=== PATIENT | male | born 1990 | race Caucasian/White ===

== ENCOUNTER 2022-05-24 16:53 | Emergency (ER) | payer OTHER ==
[~2022-05-24] VITALS: Ht 175.3 cm; Wt 80.3 kg
[2022-05-24 17:28] VITALS: BP 115/51
--- NOTE | 2022-05-24 17:30 | NUR ---
PT SENT TO LOBBY TO WAIT
--- NOTE | 2022-05-24 18:04 | NUR ---
31 Y.O. M BIB SELF C/O R ARM AND LEG NUMBNESS. STARTED 2-3HRS AGO. PT AFRAID HAS A BLOCKAGE IN HIS ARM/LEG. ARM AND LEG HAS REDNESS OR SWELLING. A&OX4, SKIN INTACT, VITALS WNL, AND STEADY GAIT. ALLERGY: [facility]
--- NOTE | 2022-05-24 18:50 | NUR ---
PATIENT LEFT WITHOUT BEING SEEN BY LAWANDA ALVARENGA. NO FURTHER CARE PROVIDED FOR PATIENT.
== END 2022-05-24 18:50 | disposition left against medical advice (07) ==
LOC: MED 16:53
DX: R20.0 Anesthesia of skin (principal); Z53.21 Procedure and treatment not carried out due to patient leaving prior to being seen by health care provider